=== PATIENT | male | born 1995 | race Caucasian/White ===

== ENCOUNTER 2016-08-31 14:02 | Emergency (ER) | payer OTHER ==
[2016-08-31] MEDS ORDERED: PROPARACAINE 0.5% 15 ML OPHT DROP ONE (14:12)
[2016-08-31] MEDS ORDERED: PROPARACAINE 0.5% 15 ML OPHT DROP OP ONE (14:12)
--- NOTE | 2016-08-31 14:12 | EDPHY ---
H & P Time Seen by Provider: 08/31/16 14:10 HPI/ROS: CHIEF COMPLAINT: PVC glue in the eye HISTORY OF PRESENT ILLNESS: Patient presents because he was working with PVC over his head and got the purple adhesive into his eye on the right side just before arrival. REVIEW OF SYSTEMS: A little bit of blurry vision otherwise negative PAST MEDICAL HISTORY: Negative Social history: Work related General Appearance: Alert, no distress. Visual acuity: noted from nursing notes. 20/25 in each eye. Lids and Lashes: No edema, no stye, no erythema. Conjunctivae: Injected on the right side but no exudate Sclera: No subconjunctival hemorrhage, no icterus. Pupils: Equal and round, normally reactive. Corneas: Right examined with fluoroscein, very slight lateral uptake seen with slitlamp. No foreign body on surface of cornea. Anterior chamber: normal, no hyphema or hypopyon. External: No proptosis, no periorbital swelling or redness or tenderness. Emergency Department course/MDM: Likely chemical conjunctivitis with small corneal abrasion. Visual acuity normal. Patient had 1 L Shaun lens irrigation in the emergency department. Proparacaine drop afterwards relieved his symptoms. PH paper shows 7.0. Warned mandatory follow-up 24 hours with work comp clinic or referral lead die molder to ensure appropriate healing is taking place. Smoking Status: Current every day smoker Constitutional: Initial Vital Signs Temperature (C) 36.5 C 08/31/16 14:05 Heart Rate 118 H 08/31/16 14:05 Respiratory Rate 24 H 08/31/16 14:05 Blood Pressure 148/102 H 08/31/16 14:05 O2 Sat (%) 98 08/31/16 14:05 O2 Delivery Mode Room Air Allergies/Adverse Reactions: No Known Allergies Allergy (Unverified 08/31/16 14:04) Home Medications: Medication Instructions Recorded NK [No Known Home Meds] 08/31/16 MDM/Departure - MDM Medications Given: Discontinued Medications Proparacaine HCl (Alcaine 0.5%) 1 drops OP EDNOW ONE Stop: 08/31/16 14:13 Last Admin: 08/31/16 14:31 Dose: 1 drop - Depart Disposition: Home, Routine, Self-Care Clinical Impression: Acute conjunctivitis of right eye Qualifiers: Acute conjunctivitis type: toxic Qualified Code(s): H10.211 - Acute toxic conjunctivitis, right eye Corneal abrasion Qualifiers: Encounter type: initial encounter Laterality: right Qualified Code(s): S05.01XA - Injury of conjunctiva and corneal abrasion without foreign body, right eye, initial encounter Condition: Good Instructions: Corneal Abrasion (ED) Additional Instructions: Please follow-up with work comp clinic or the referral lead die molder in 24 hours for recheck. Eyedrops for the next 72 hours as directed; 2 drops to the right eye every 4 hours while awake. Please return if you get worsening or severe eye pain or any decrease in vision. Referrals: NONE *PRIMARY CARE P,. [Primary Care Provider] - As per Instructions Mavis Moreno MD [Non Staff Provider (MD)] - As per Instructions
[2016-08-31] MEDS ORDERED: GENTAMICIN 0.3% DROPS PREPACK OPHT.BTL TAKEHOME ONE (14:59)
[2016-08-31 15:16] VITALS: BP 129/79; PULSE 74; RESP 14; TEMP 98.4; O2SAT 94
== END 2016-08-31 15:15 | disposition home or self-care (01) ==
DX: S05.01XA Injury of conjunctiva and corneal abrasion without foreign body, right eye, initial encounter (principal); H10.211 Acute toxic conjunctivitis, right eye; F17.200 Nicotine dependence, unspecified, uncomplicated; T52.8X1A Toxic effect of other organic solvents, accidental (unintentional), initial encounter; X58.XXXA Exposure to other specified factors, initial encounter; Y92.69 Other specified industrial and construction area as the place of occurrence of the external cause; Y99.0 Civilian activity done for income or pay; Y93.89 Activity, other specified